=== PATIENT | male | born 1955 | race Caucasian/White ===

== ENCOUNTER 2017-06-10 09:09 | Outpatient (RCR) | payer OTHER | END 2017-06-11 | LOC: M OT 09:09 | PROVIDERS: ATTEND Family Medicine | DX: M25.60 Stiffness of unspecified joint, not elsewhere classified (principal); M62.541 Muscle wasting and atrophy, not elsewhere classified, right hand; M62.542 Muscle wasting and atrophy, not elsewhere classified, left hand ==

== ENCOUNTER 2017-06-15 09:00 | Outpatient (RCR) | payer OTHER | END 2017-07-12 | LOC: M OT 09:00 | DX: Z51.89 Encounter for other specified aftercare (principal); M25.60 Stiffness of unspecified joint, not elsewhere classified; M62.541 Muscle wasting and atrophy, not elsewhere classified, right hand; M62.542 Muscle wasting and atrophy, not elsewhere classified, left hand ==

== ENCOUNTER → 2017-08-25 | Outpatient (REF) | LOC: M SMT 14:18 | DX: M54.5 Low back pain (principal) ==

== ENCOUNTER 2018-09-02 20:20 | Emergency (ER) | payer OTHER ==
[~2018-09-02] VITALS: Ht 182.9 cm; Wt 106.8 kg
[2018-09-02 20:57] LABS: BASO # 0.1 10^3/uL (0.0-0.2); BASO % 0.6 % (0.0-1.0); EOS # 0.1 10^3/uL (0.0-0.50); EOS % 1.3 % (0.0-3.0); HEMATOCRIT 41.3 % (42.0-52.0); HEMOGLOBIN 14.1 g/dl (13.5-17.5); LYMPH # 2.5 10^3/uL (1.5-4.5); LYMPH % 23.8 % (24.0-44.0); MEAN CORPUSCULAR HEMOGLOBIN 30.5 pg (27.0-33.0); MEAN CORPUSCULAR HGB CONC 34.1 g/dl (32.0-36.5); MEAN CORPUSCULAR VOLUME 89.2 fl (80.0-96.0); MONO # 0.8 10^3/uL (0.0-0.8); MONO % 7.3 % (0.0-5.0); NEUTROPHILS # 7.1 10^3/uL (1.8-7.7); NEUTROPHILS % 66.5 % (36.0-66.0); PLATELET COUNT, AUTOMATED 261 10^3/uL (150-450); RED BLOOD COUNT 4.63 10^6/uL (4.30-6.10); WHITE BLOOD COUNT 10.6 10^3/uL (4.0-10.0)
[2018-09-02] MEDS ORDERED: ASPIRIN 81 MG CHEW TABLET PO ONE (21:00)
[2018-09-02 21:09] LABS: BLOOD UREA NITROGEN 7 MG/DL (7-18); CALCIUM LEVEL 8.7 MG/DL (8.8-10.2); CARBON DIOXIDE LEVEL 28 MEQ/L (21-32); CHLORIDE LEVEL 106 MEQ/L (98-107); CPK CREATINE PHOSPHOKINASE 183 U/L (39-308); CREATININE FOR GFR 0.99 MG/DL (0.70-1.30); GLOMERULAR FILTRATION RATE > 60.0 (>49); GLUCOSE, FASTING 103 MG/DL (70-100); MB/CK RELATIVE INDEX 1.48 (< OR =4); POTASSIUM SERUM 3.6 MEQ/L (3.5-5.1); SODIUM LEVEL 141 MEQ/L (136-145); TROPONIN I < 0.02 NG/ML (< 0.10)
[2018-09-02] MEDS: NITROGLYCERIN 0.4 MG SUBL TABLET SL PRN ×3 (21:10→21:20)
[2018-09-02 21:20] VITALS: BP 114/57
[2018-09-02] MEDS ORDERED: ISOVUE-370 76% 100ML VIAL (Q9967) As Ordered ONE (21:54)
--- NOTE | 2018-09-02 22:46 | REPVR ---
EXAM: CT Angiography Chest With Contrast EXAM DATE/TIME: 09/02/2018 9:48 PM CLINICAL HISTORY: 62 years old, male; Pain and signs and symptoms; Shortness of breath; Chest pain; Type not specified; Additional info: Chest pain, SOB TECHNIQUE: Axial computed tomographic angiography images of the chest with intravenous contrast using CT angiography protocol. All CT scans at this facility use at least one of these dose optimization techniques: automated exposure control; mA and/or kV adjustment per patient size (includes targeted exams where dose is matched to clinical indication); or iterative reconstruction. Coronal and sagittal reformatted images were created and reviewed. MIP reconstructed images were created and reviewed. CONTRAST: Contrast Material: 75 ml of ISOVUE 370; Contrast Route: IV COMPARISON: CR Chest, 2 view PA, Lat 09/02/2018 8:59 PM FINDINGS: Pulmonary arteries: There is opacification of the pulmonary arteries with no evidence of pulmonary embolus. Aorta: There is opacification of the aorta which appears intact. There is prominence of the heart. Thyroid: Normal thyroid. Lungs: Mild strandiness in the lung bases probably mild atelectasis or increased vascularity. The lungs are otherwise clear. Pleural space: Normal. No pneumothorax. No pleural effusion. Heart: No pericardial effusion. Lymph nodes: There is no evidence of lymphadenopathy. Bones/joints: No evidence of bony abnormality. Soft tissues: Unremarkable. IMPRESSION: 1. No evidence of pulmonary embolus. 2. Prominence of the heart. 3. Prominence of vascular and interstitial markings posterior aspect of the lungs. Electronically signed by: Gurvinder Alford On 09/02/2018 22:46:27 PM
[2018-09-03] MEDS ORDERED: KETOROLAC 30 MG/ML VIAL (J1885) IV ONE (00:45)
[2018-09-03 03:20] VITALS: BP 121/60
[2018-09-03 03:23] LABS: CPK CREATINE PHOSPHOKINASE 161 U/L (39-308); MB/CK RELATIVE INDEX 1.06 (< OR =4); TROPONIN I < 0.02 NG/ML (< 0.10)
[2018-09-03] MEDS ORDERED: NAPR-50 PO (03:32)
--- NOTE | 2018-09-03 08:03 | ECGEPIP ---
Stationary ECG Study [facility] - ED Test Date: 2018-09-02 Pat Name: ROLAND DUBON Department: Room: - Gender: M Property Field Inspector: : 1955 Requested By: FLORENCIA Hawkins Order Number: [id number] Reading MD: Eric Murdock Measurements Intervals [place] Rate: 80 P: 29 MT: 172 QRS: -11 QRSD: 90 T: 31 QT: 374 QTc: 434 Interpretive Statements SINUS RHYTHM INCOMPLETE RIGHT BUNDLE BRANCH BLOCK BASELINE ARTIFACT AFFECTS INTERPRETATION NO PRIORS FOR COMPARISON Electronically Signed On 09-03-2018 8:03:23 EST by Eric Murdock
--- NOTE | 2018-09-03 08:12 | ECGEPIP ---
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
--- NOTE | 2018-09-03 11:56 | REP ---
Clinical: Acute chest pain . Comparison: None . Technique: PA and lateral. Findings: The mediastinum and cardiac silhouette are normal. The lung pablo are clear and without acute consolidation, effusion, or pneumothorax. The skeletal structures are intact and normal. Impression: 1. No acute cardiopulmonary process. Electronically Signed by Meño Hickman MD 09/03/2018 11:48 A
== END 2018-09-03 03:46 | disposition home or self-care (01) ==
LOC: M ED 20:20
DX: R07.1 Chest pain on breathing (principal); I45.19 Other right bundle-branch block; Z77.098 Contact with and (suspected) exposure to other hazardous, chiefly nonmedicinal, chemicals; Z82.49 Family history of ischemic heart disease and other diseases of the circulatory system
CPT/HCPCS: 71046; 71275; 80048; 82550; 82553; 84484; 85025; 85379; 93005; 93041; 94760; 96374; 99285; J1885; Q9967

== ENCOUNTER 2019-12-13 10:28 | Inpatient (IN) | payer OTHER ==
[~2019-12-13] VITALS: Ht 182.9 cm; Wt 112.1 kg
[~2019-12-13 10:28] MED LIST: NAPR-837 PO
[2019-12-13] MEDS ORDERED: NS 1,000 ML IV SCH (12:00)
[2019-12-13 12:20] LABS: HEMATOCRIT 39.7 % (42.0-52.0); HEMOGLOBIN 13.9 g/dl (13.5-17.5); MEAN CORPUSCULAR HEMOGLOBIN 30.9 pg (27.0-33.0); MEAN CORPUSCULAR VOLUME 88.2 fl (80.0-96.0); PLATELET COUNT, AUTOMATED 243 10^3/uL (150-450); WHITE BLOOD COUNT 14.1 10^3/uL (4.0-10.0)
[2019-12-13 12:37] LABS: BLOOD UREA NITROGEN 9 MG/DL (7-18); CALCIUM LEVEL 8.6 MG/DL (8.8-10.2); CARBON DIOXIDE LEVEL 28 MEQ/L (21-32); CHLORIDE LEVEL 107 MEQ/L (98-107); GLOMERULAR FILTRATION RATE > 60.0 (>49); GLUCOSE, FASTING 105 MG/DL (70-100); POTASSIUM SERUM 4.2 MEQ/L (3.5-5.1); SODIUM LEVEL 141 MEQ/L (136-145)
--- NOTE | 2019-12-13 13:43 | REP ---
RIGHT ANKLE, FOUR VIEWS: Four views of the right ankle performed. There is a fracture of the medial malleolus which is displaced to a mild extent distally and laterally. There is mild widening of the medial aspect of the ankle mortise. There is an oblique fracture of the distal fibula, which is only minimally displaced laterally. There is associated soft tissue swelling. Electronically Signed by Munir Sanches MD 12/14/2019 12:28 P
[2019-12-13] MEDS ORDERED: MOM 30ML SUSPENSION UDC PO PRN (13:45)
--- NOTE | 2019-12-13 13:53 | REP ---
RIGHT LOWER LEG: AP and lateral views of the right lower leg performed. There is a fracture of the medial malleolus which is mildly displaced distally and laterally. There is an oblique fracture of the distal fibula with minimal lateral displacement. No other fracture or dislocation is seen. There is mild posterior calcaneal spurring. There are moderate degenerative changes of the medial knee joint with joint space narrowing and subchondral sclerosis. Electronically Signed by Munir Sanches MD 12/14/2019 12:28 P
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
--- NOTE | 2019-12-13 14:22 | REP ---
REASON: Preoperative evaluation. COMPARISON: 09/02/2018, the latest prior. FINDINGS: The technique utilized in obtaining the radiograph has magnified the cardiac silhouette and accentuated the interstitial markings. The superior mediastinal structures are midline. The cardiac silhouette is unremarkable in size, shape, and position. The diaphragmatic surfaces of the lungs are regular, and the costophrenic angles are clear. The pulmonary pablo are clear. The imaged osseous structures are intact. IMPRESSION: There is no acute cardiopulmonary disease. No significant change from the prior exam. Electronically Signed by Chon Stahl DO 12/13/2019 03:12 P
[2019-12-13 17:50] VITALS: BP 128/76
[2019-12-13] MEDS: D5W/0.9% SODIUM CHLORIDE 1,000 ML IV SCH (17:51)
--- NOTE | 2019-12-13 18:49 | ECGEPIP ---
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
[2019-12-13] MEDS ORDERED: ceFAZolin SOD 2 GM in IV 1 EA IV ONE (20:00)
[2019-12-13 20:29] VITALS: BP 126/78
[2019-12-13] MEDS: DOCUSATE SODIUM 100 MG CAP PO SCH (20:46)
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
[2019-12-13] MEDS ORDERED: propofoL 200 MG/20 ML VIAL As Ordered ONE (22:29)
[2019-12-13] MEDS ORDERED: LIDOCAINE 2% 100MG/5ML SDV (FOR ANES.) As Ordered ONE (22:29)
[2019-12-13] MEDS ORDERED: fentaNYL 100 MCG/2 ML INJECTION (J3010) As Ordered ONE (22:30)
[2019-12-13] MEDS ORDERED: MIDAZOLAM INJ 2MG/2ML VIAL (J2250 PER 1MG) As Ordered ONE (22:30)
[2019-12-13] MEDS ORDERED: METOCLOPRAMIDE INJ 10MG/2ML VIAL (J2765 PER 1) As Ordered ONE (23:15)
[2019-12-13] MEDS ORDERED: ONDANSETRON 4MG/2ML VIAL As Ordered ONE (23:16)
[2019-12-13] MEDS ORDERED: ceFAZolin 2 GM/D5W 50 ML IV BAG (J0690 PER 500MG) As Ordered ONE (23:27)
[2019-12-13] MEDS ORDERED: ceFAZolin 1GM VIAL (J0690 PER 500MG) As Ordered ONE (23:31)
[2019-12-14] VITALS (9 sets, daily range): BP systolic 94–122; BP diastolic 56–74
[2019-12-14] MEDS ORDERED: fentaNYL 100 MCG/2 ML INJECTION (J3010) As Ordered ONE ×2 (00:17→01:03)
[2019-12-14] MEDS ORDERED: ACETAMINOPHEN 1000MG 100ML IV BTL (OFIRMEV) (J0131 PER 10MG) As Ordered ONE (00:18)
[2019-12-14] MEDS ORDERED: LR 1,000 ML IV SCH (01:15)
[2019-12-14] MEDS ORDERED: ONDANSETRON 4MG/2ML VIAL IV PRN (01:15)
[2019-12-14] MEDS ORDERED: fentaNYL 100 MCG/2 ML INJECTION (J3010) IV PRN (01:15)
[2019-12-14] MEDS ORDERED: PERCOCET 5MG/325MG TAB PO PRN (01:15)
[2019-12-14] MEDS ORDERED: METOCLOPRAMIDE INJ 10MG/2ML VIAL (J2765 PER 1) IV PRN (01:15)
[2019-12-14] MEDS ORDERED: NORCO, ANEXSIA 5/325MG TABLET (HYDROcodone/ACETAMINOPHEN) PO PRN ×2 (01:15)
[2019-12-14] MEDS ORDERED: MORPHINE 4 MG/ML 1ML VIAL/SYRINGE (J2270) IV PRN (01:15)
--- NOTE | 2019-12-14 01:33 | REP ---
Clinical: Right ankle fracture. Technique: Intraoperative fluoroscopic imaging using portable C-arm technique. Findings: The patient is status post satisfactory open reduction and fixation for distal fibular fracture. Total fluoroscopic time 21 seconds. Impression: Satisfactory open fixation and reduction for distal fibular fracture. Electronically Signed by Meño Hickman MD 12/14/2019 01:25 A
[2019-12-14] MEDS: D5W/0.9% SODIUM CHLORIDE 1,000 ML IV SCH ×2 (01:47→16:28)
[2019-12-14] MEDS: ASPIRIN 81 MG CHEW TABLET PO SCH ×3 (02:51→21:48)
[2019-12-14 06:44] LABS: HEMATOCRIT 36.4 % (42.0-52.0); HEMOGLOBIN 12.4 g/dl (13.5-17.5); MEAN CORPUSCULAR HEMOGLOBIN 30.7 pg (27.0-33.0); MEAN CORPUSCULAR HGB CONC 34.1 g/dl (32.0-36.5); MEAN CORPUSCULAR VOLUME 90.1 fl (80.0-96.0); PLATELET COUNT, AUTOMATED 201 10^3/uL (150-450); RED BLOOD COUNT 4.04 10^6/uL (4.30-6.10); WHITE BLOOD COUNT 9.1 10^3/uL (4.0-10.0)
[2019-12-14 07:13] LABS: BLOOD UREA NITROGEN 8 MG/DL (7-18); CALCIUM LEVEL 7.7 MG/DL (8.8-10.2); CARBON DIOXIDE LEVEL 28 MEQ/L (21-32); CHLORIDE LEVEL 109 MEQ/L (98-107); CREATININE FOR GFR 0.81 MG/DL (0.70-1.30); GLOMERULAR FILTRATION RATE > 60.0 (>49); GLUCOSE, FASTING 109 MG/DL (70-100); SODIUM LEVEL 141 MEQ/L (136-145)
[2019-12-14] MEDS ORDERED: HYDR-3713 PO (07:25)
[2019-12-14] MEDS ORDERED: ASPI81CH33 PO (07:30)
[2019-12-14] MEDS: DOCUSATE SODIUM 100 MG CAP PO SCH ×2 (08:11→21:00)
[2019-12-14] MEDS: ceFAZolin SOD 2 GM in IV 1 EA IV SCH ×2 (08:11→16:27)
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
[2019-12-15] MEDS: ceFAZolin SOD 2 GM in IV 1 EA IV SCH (00:50)
[2019-12-15 06:00] VITALS: BP 119/68
[2019-12-15 08:16] LABS: ALBUMIN 2.9 GM/DL (3.2-5.2); ALT/SGPT 15 U/L (12-78); BLOOD UREA NITROGEN 5 MG/DL (7-18); CALCIUM LEVEL 7.8 MG/DL (8.8-10.2); CARBON DIOXIDE LEVEL 28 MEQ/L (21-32); CHLORIDE LEVEL 107 MEQ/L (98-107); CREATININE FOR GFR 0.72 MG/DL (0.70-1.30); GLOMERULAR FILTRATION RATE > 60.0 (>49); GLUCOSE, FASTING 98 MG/DL (70-100); POTASSIUM SERUM 3.6 MEQ/L (3.5-5.1); SODIUM LEVEL 141 MEQ/L (136-145)
[2019-12-15] MEDS: DOCUSATE SODIUM 100 MG CAP PO SCH ×2 (09:00→21:00)
[2019-12-15] MEDS ORDERED: PROHANCE 279.3MG/ML 5ML VIAL As Ordered ONE (09:14)
[2019-12-15] MEDS ORDERED: PROHANCE 279.3MG/ML 15ML VIAL As Ordered ONE (09:15)
[2019-12-15] MEDS: ASPIRIN 81 MG CHEW TABLET PO SCH ×2 (10:25→21:00)
--- NOTE | 2019-12-15 11:05 | REPVR ---
PROCEDURE INFORMATION: Exam: MR Cervical Spine Without and With Contrast Exam date and time: 12/15/2019 9:31 AM Age: 63 years old Clinical indication: Patient HX: Neck pain >45 years and worsening cervical spine syrinx found on MRI. TECHNIQUE: Imaging protocol: Multiplanar magnetic resonance images of the cervical spine without and with intravenous contrast. Contrast material: PROHANCE; Contrast volume: 20 ml; Contrast route: 22G; COMPARISON: CR SPINE CERVICAL AP/LAT 08/25/2017 2:30 PM FINDINGS: Examination is limited due to patient motion artifact. Vertebrae: There is severe flexion curvature of the cervical spine with the apex at C5. The appearance suggests this is chronic and comparison to prior studies is recommended. Spinal cord: There is moderate thinning/atrophy of the cervical cord at the C5 level. High signal within the cervical cord extends from C5 through C7 consistent with known syrinx. There is cord expansion at the C7 level. C2-C3: No significant disc disease. No significant spinal stenosis. C3-C4: There is a moderate disc/osteophyte complex that flattens the ventral thecal sac. C4-C5: There is a moderate disc/osteophyte complex that flattens the ventral thecal sac. There is mild bilateral neuroforaminal narrowing. There is mild spinal canal stenosis. C5-C6: There is a moderate disc/osteophyte complex that flattens the ventral thecal sac. There is mild spinal canal stenosis. C6-C7: There is minimal retrolisthesis at this level. There is disc space narrowing and desiccation. There are moderate degenerative end plate changes at this level. There is mild bilateral neuroforaminal narrowing. There is mild spinal canal stenosis. C7-T1: No significant disc disease. No significant spinal stenosis. There is no abnormal enhancement. IMPRESSION: 1. Examination is limited due to patient motion artifact. 2. There is severe flexion curvature of the cervical spine with the apex at C5. The appearance suggests this is chronic and comparison to prior studies is recommended. 3. Advanced degenerative changes with variable degrees of spinal canal and neuroforaminal narrowing. Please see details above. Air 4. There is moderate thinning/atrophy of the cervical cord at the C5 level. High signal within the cervical cord extends from C5 through C7 consistent with known syrinx. There is cord expansion at the C7 level. Direct comparison to prior studies is recommended. Electronically signed by: Bull Hurt On 12/15/2019 11:05:00 AM
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
[2019-12-15 14:00] VITALS: BP 120/70
[2019-12-15 22:00] VITALS: BP 133/90
[2019-12-16 06:00] VITALS: BP 131/91
[2019-12-16] MEDS: DOCUSATE SODIUM 100 MG CAP PO SCH ×2 (09:00→20:49)
[2019-12-16] MEDS: ASPIRIN 81 MG CHEW TABLET PO SCH ×2 (09:15→20:49)
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
[2019-12-16 15:45] VITALS: BP 121/69
[2019-12-16 22:00] VITALS: BP 146/80
[2019-12-17 06:00] VITALS: BP 117/77
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
[2019-12-17] MEDS: DOCUSATE SODIUM 100 MG CAP PO SCH ×2 (08:20→20:05)
[2019-12-17] MEDS: ASPIRIN 81 MG CHEW TABLET PO SCH ×2 (08:46→20:06)
[2019-12-17 14:00] VITALS: BP 143/68
[2019-12-17] MEDS ORDERED: MIRALAX *UNIT DOSE* 17GM PACKET PO PRN (17:15)
[2019-12-17 22:00] VITALS: BP 132/81
[2019-12-18 06:00] VITALS: BP 130/80
[2019-12-18 06:59] LABS: BASO # 0.1 10^3/uL (0.0-0.2); BASO % 1.1 % (0.0-1.0); EOS # 0.3 10^3/uL (0.0-0.5); EOS % 3.1 % (0.0-3.0); HEMOGLOBIN 13.1 g/dl (13.5-17.5); LYMPH # 2.3 10^3/uL (1.5-5.0); LYMPH % 28.1 % (24.0-44.0); MEAN CORPUSCULAR HGB CONC 35.4 g/dl (32.0-36.5); MEAN CORPUSCULAR VOLUME 87.7 fl (80.0-96.0); MONO # 0.7 10^3/uL (0.0-0.8); MONO % 8.4 % (0.0-5.0); NEUTROPHILS # 4.8 10^3/uL (1.5-8.5); NEUTROPHILS % 58.8 % (36.0-66.0); PLATELET COUNT, AUTOMATED 270 10^3/uL (150-450); RED BLOOD COUNT 4.22 10^6/uL (4.30-6.10); WHITE BLOOD COUNT 8.1 10^3/uL (4.0-10.0)
[2019-12-18 07:26] LABS: BLOOD UREA NITROGEN 8 MG/DL (7-18); CALCIUM LEVEL 8.4 MG/DL (8.8-10.2); CARBON DIOXIDE LEVEL 26 MEQ/L (21-32); CHLORIDE LEVEL 106 MEQ/L (98-107); CREATININE FOR GFR 0.71 MG/DL (0.70-1.30); GLOMERULAR FILTRATION RATE > 60.0 (>49); GLUCOSE, FASTING 87 MG/DL (70-100); POTASSIUM SERUM 3.6 MEQ/L (3.5-5.1); SODIUM LEVEL 138 MEQ/L (136-145)
[2019-12-18] MEDS: ASPIRIN 81 MG CHEW TABLET PO SCH ×2 (08:17→20:09)
[2019-12-18] MEDS: DOCUSATE SODIUM 100 MG CAP PO SCH ×2 (08:17→20:09)
[2019-12-18] MEDS ORDERED: ENOXAPARIN 40MG/0.4ML SYRINGE (J1650 PER 10MG) SC SCH (09:00)
[2019-12-18 14:00] VITALS: BP 153/88
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
[2019-12-18] MEDS ORDERED: ANUSOL HC CREAM 30GM TOP PRN (16:00)
[2019-12-18] MEDS: CETAPHIL CLEANSER TOP SCH (20:09)
[2019-12-18 22:00] VITALS: BP 123/75
[2019-12-19 06:00] VITALS: BP 124/75
[2019-12-19] MEDS: CETAPHIL CLEANSER TOP SCH ×2 (08:33→21:01)
[2019-12-19] MEDS: ASPIRIN 81 MG CHEW TABLET PO SCH ×2 (08:33→21:02)
[2019-12-19] MEDS: DOCUSATE SODIUM 100 MG CAP PO SCH ×2 (08:34→21:00)
--- NOTE | 2019-12-19 13:59 | RO ---
DATE OF PROCEDURE: 12/14/2019 PREPROCEDURE DIAGNOSIS: Bimalleolar right ankle fracture. POSTPROCEDURE DIAGNOSIS: Bimalleolar right ankle fracture. PROCEDURE: Open reduction internal fixation of right ankle fracture. SURGEON: Guzman Park MD FIRE CONTROL TECHNICIAN B: None. ANESTHESIA: General laryngeal mask anesthetic. COMPLICATIONS: None. ESTIMATED BLOOD LOSS: Less than 20 mL. TOURNIQUET TIME: 32 minutes. ANTIBIOTICS: 2 grams Kefzol. DESCRIPTION OF PROCEDURE: Antibiotics were given intravenously preoperatively, and a successful general laryngeal mask anesthetic was established. Tourniquet placed at the right upper thigh and not inflated. The right lower extremity was carefully prepped and draped in the usual sterile fashion, leg elevated, and then after appropriate time-out, the tourniquet was inflated at 250 mmHg. We first addressed the lateral portion of the ankle fracture. A lateral and longitudinal incision was made, exposing the underlying distal fibular fracture. Using a skin knife, then a secondary knife was used to help expose the fracture site and use a small torres elevator to elevate the periosteum away to allow us to irrigate out the fracture site. It was an oblique simple fracture pattern, which was irrigated copiously, and then an open anatomic reduction performed and held with alligator and point of reduction forceps. Fluoroscopic imaging at this point confirmed that on the mortise view, we had reduction of the mortise, and a very small almost an evulsion injury of the medial malleolus reduced nicely. As suggested preoperatively by my foot and ankle colleague, if the mortise reduced, likely it would not require fixation of that small medial piece and avoid opening the medial side of the ankle. Once the fracture was well reduced, an interfragmentary compression screw was placed from front to back through a small accessory stab incision anteriorly. Using the 3.5 drill and exchanged to the top hat drill guide and then the 2.5 drill and then I placed a 20-mm fully-threaded cortical screw, providing excellent firm fixation. I then contoured a 7-hole plate; and under fluoroscopic imaging, I confirmed I had good position of the plate. Then, I filled the distal-most hole with an 18-mm cancellous fully-threaded screw, and then the second-most proximal screw hole was filled with a 3.5 cortical screw after measuring appropriately. Fluoroscopic imaging confirmed we continued to have good reduction of the fracture and good placement of the plate and those two screws; and thus, the remaining screws were filled except for the one in the central portion of the plate overlying the interfragmentary compression screw. The distal three holes were filled with cancellous screws, the proximal three with cortical screws. Excellent firm fixation of all the screws were noted. Fluoroscopic imaging confirmed we had good reduction of the mortise, and on the mortise view, as well as a good AP reduction and lateral view reduction of the fracture site, and the hardware was in good position. Again, a very small medial malleolar piece seemed to reduce nicely, and it was so small, I did not feel it was worth opening the medial side of the ankle, causing further trauma and risk of infection in this already-compromised patient with skin excoriations and rashes. It is noteworthy that Ioban was used throughout the procedure to help minimize any exposure of the skin to the surgical wound. At this point, I released the tourniquet, copiously irrigated out the fracture site, then closed the deep subdermal tissues with several interrupted 2-0 polydioxanone suture (PDS) sutures. The skin was closed with ambrocio. The small stab incision was closed with a staple. The wounds were covered with an Adaptic and then a dry sterile bulky ortho dressing, and then a very well-padded loose-fitting plaster cast was applied. He was then awakened from general laryngeal mask anesthetic after having tolerated the procedure well and transferred to the recovery room in stable condition. There were no intraoperative complications.
[2019-12-19 14:00] VITALS: BP 124/73
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
[2019-12-19] MEDS: ANUSOL HC CREAM 30GM TOP SCH ×2 (15:34→21:01)
--- NOTE | 2019-12-19 17:24 | CR ---
DATE OF CONSULTATION: 12/18/2019 The patient was seen at the request of my partner, Dr. Guzman Park, who had treated him for an ankle fracture, to evaluate cervical myelopathy. HISTORY: His previous medical records were reviewed. The patient indicates that he has been seen in [place] by a neurosurgeon there in the past for cervical myelopathy, cervical kyphosis and syrinx and considered surgery not an option, apparently surgery was offered, the patient felt that the risks were not something he was comfortable with and elected for nonoperative care. I reviewed the imaging. The patient does have significant cervical kyphosis. He has an area of myelomalacia in the subaxial cervical spine. There is a syrinx extending from C6 down. For further details, refer to MRI and other imaging studies. Primary today's visit was a counseling visit. I spoke to the patient again about his neurologic condition, which has deteriorated over time, and he acknowledges this. I spoke to the patient about potential surgical interventions, which in my hands would likely entail anterior and posterior cervical surgery, such as an anterior partial corpectomy, strut grafting, instrumentation with posterior instrumentation because of the significant kyphosis. This is unappealing to the gentleman. He understands that the surgery is to prevent his condition from getting worse, that the surgery is associated with a significant recovery period, that while he has some possibility of noting some improvement, improvement at best would be incomplete. He feels that his recovery would be too protracted. He feels strongly he would not consent to an operative intervention, declining surgery. I am happy to see this patient at any point in the future to revisit his treatment options. The patient was comfortable with our plan.
[2019-12-19 22:00] VITALS: BP 124/71
[2019-12-20 06:00] VITALS: BP 121/70
[2019-12-20 07:11] LABS: BASO # 0.1 10^3/uL (0.0-0.2); BASO % 0.9 % (0.0-1.0); EOS # 0.2 10^3/uL (0.0-0.5); EOS % 2.8 % (0.0-3.0); HEMATOCRIT 36.2 % (42.0-52.0); HEMOGLOBIN 12.5 g/dl (13.5-17.5); LYMPH # 2.2 10^3/uL (1.5-5.0); LYMPH % 27.8 % (24.0-44.0); MEAN CORPUSCULAR HEMOGLOBIN 30.9 pg (27.0-33.0); MEAN CORPUSCULAR HGB CONC 34.5 g/dl (32.0-36.5); MEAN CORPUSCULAR VOLUME 89.4 fl (80.0-96.0); MONO # 0.7 10^3/uL (0.0-0.8); MONO % 9.2 % (0.0-5.0); NEUTROPHILS # 4.6 10^3/uL (1.5-8.5); PLATELET COUNT, AUTOMATED 282 10^3/uL (150-450); RED BLOOD COUNT 4.05 10^6/uL (4.30-6.10); WHITE BLOOD COUNT 7.7 10^3/uL (4.0-10.0)
[2019-12-20 07:36] LABS: BLOOD UREA NITROGEN 10 MG/DL (7-18); CALCIUM LEVEL 8.2 MG/DL (8.8-10.2); CARBON DIOXIDE LEVEL 28 MEQ/L (21-32); CHLORIDE LEVEL 107 MEQ/L (98-107); CREATININE FOR GFR 0.66 MG/DL (0.70-1.30); GLOMERULAR FILTRATION RATE > 60.0 (>49); GLUCOSE, FASTING 84 MG/DL (70-100); POTASSIUM SERUM 3.8 MEQ/L (3.5-5.1); SODIUM LEVEL 140 MEQ/L (136-145)
[2019-12-20] MEDS: CETAPHIL CLEANSER TOP SCH ×2 (08:53→21:00)
[2019-12-20] MEDS: ANUSOL HC CREAM 30GM TOP SCH ×2 (08:53→21:04)
[2019-12-20] MEDS: DOCUSATE SODIUM 100 MG CAP PO SCH ×2 (08:53→21:00)
[2019-12-20] MEDS: ASPIRIN 81 MG CHEW TABLET PO SCH ×2 (08:53→21:04)
[2019-12-20 14:49] VITALS: BP 128/77
--- NOTE | 2019-12-20 17:34 | IPN ---
DATE: 12/20/2019 SUBJECTIVE: Patient denies any pain, 3/10 while he has his leg and ankle elevated and not moving. When he does stand up, per nursing, patient has not requested any pain medications and would not take any morphine or hydrocodone orally when he moves. Patient says that the pain gets up to about a 5/10 on a pain scale, but says he does not want to take any pain medications. PHYSICAL EXAM: Vital Signs: Temperature 97.9, pulse 60, respiratory rate 16, blood pressure 121/70, 94% on room air. Generally, patient is awake, alert, oriented to person, place and time. He has no respiratory distress, able to speak in full sentences. Lungs are clear to auscultation. No wheezing, rales or rhonchi. Heart: S1, S2, sinus rhythm. Abdomen is soft, nontender, nondistended. Obese abdomen. Extremities: No cyanosis or clubbing. Ankle is elevated. ASSESSMENT AND PLAN: This is a 64-year-old with bimalleolar ankle fracture, status post open reduction internal fixation of the right ankle fracture on 12/13/[address] Guzman Park, who lives alone, unable to complete activities of daily living (ADLs), evaluated by Dr. Tin Luque who recommended surgical intervention, but patient feels that "his recovery would be too protracted" and would not consent to operative intervention, declining surgery. CURRENT ISSUES: 1. Bimalleolar right ankle fracture, status post ORIF, awaiting acute rehabilitation unit (ARU) acceptance. Patient and family services (PFS) consulted. Pain meds, bowel regimen and physical therapy. 2. Cervical myelopathy. Refusing surgery. Evaluated by Dr. Tin Luque. Patient continues to deteriorate neurologically, and even after discussion of risks and benefits, patient is declining surgery at this time. 3. Facial dermatitis, on Cetaphil. Dermatology followup as outpatient. 4. Chronic constipation, on Senna and MiraLAX. 5. Obesity, body mass index (BMI) of 33, complicating care. 6. Disposition: Awaiting PFS in terms of discharge options. Medically stable for hospital discharge either to ARU or custodial. SONA
[2019-12-20 22:00] VITALS: BP 132/72
[2019-12-21 06:00] VITALS: BP 130/72
[2019-12-21] MEDS: DOCUSATE SODIUM 100 MG CAP PO SCH (09:00)
[2019-12-21] MEDS: ASPIRIN 81 MG CHEW TABLET PO SCH (09:10)
[2019-12-21] MEDS: CETAPHIL CLEANSER TOP SCH (09:11)
[2019-12-21] MEDS: ANUSOL HC CREAM 30GM TOP SCH (09:12)
== END 2019-12-21 14:05 | DRG 493 ==
LOC: EDBD 10:28 → M ED 10:28 → M ED INP 13:35 → ENRESERV 13:44 → M MS5PR 17:42
PROVIDERS: ADMIT Internal Medicine Nephrology; ATTEND General Practice
PROC: 0QSJ04Z Reposition Right Fibula with Internal Fixation Device, Open Approach (ICD-10-PCS; principal; 2019-12-14)
DX: S82.841A Displaced bimalleolar fracture of right lower leg, initial encounter for closed fracture (principal); G95.0 Syringomyelia and syringobulbia; K59.09 Other constipation; W18.30XA Fall on same level, unspecified, initial encounter; X58.XXXA Exposure to other specified factors, initial encounter; Y92.9 Unspecified place or not applicable; S14.105S Unspecified injury at C5 level of cervical spinal cord, sequela; M62.522 Muscle wasting and atrophy, not elsewhere classified, left upper arm; M62.421 Contracture of muscle, right upper arm; M40.12 Other secondary kyphosis, cervical region; M62.422 Contracture of muscle, left upper arm; R53.81 Other malaise; L23.9 Allergic contact dermatitis, unspecified cause; M62.521 Muscle wasting and atrophy, not elsewhere classified, right upper arm; E66.9 Obesity, unspecified; Z68.33 Body mass index [BMI] 33.0-33.9, adult; Z90.49 Acquired absence of other specified parts of digestive tract; Z74.09 Other reduced mobility; Z87.442 Personal history of urinary calculi; Y99.8 Other external cause status; Z11.59 Encounter for screening for other viral diseases

== ENCOUNTER → 2021-02-08 | Outpatient (CLI) | payer MEDICARE, OTHER ==
[~2021-02-08] MED LIST changes: +ASPI81CH33 PO; +HYDR-3713 PO
--- NOTE | 2021-02-08 15:27 | REPVR ---
PROCEDURE INFORMATION: Exam: MR Lumbar Spine Without Contrast Exam date and time: 02/08/2021 9:00 AM Age: 65 years old Clinical indication: Low back pain; Additional info: Disc like symptoms TECHNIQUE: Imaging protocol: Multiplanar magnetic resonance images of the lumbar spine without intravenous contrast. COMPARISON: No relevant prior studies available. FINDINGS: Vertebrae: Vertebral body heights are intact. Alignment is maintained. No pars defect is identified. Spinal cord: The conus is unremarkable in appearance, with its tip at the T12 level. Multilevel findings: There are varying degrees of disc desiccation indicating intervertebral disc degeneration. There are also small Schmorl's nodes at some levels. L1-L2: No significant disc displacement. L2-L3: Minimal bulge without significant neural foraminal narrowing or spinal stenosis. L3-L4: Small bulge combining with facet arthrosis to lead to moderate right and mild to moderate left neural foraminal narrowing with mild right lateral recess narrowing, without significant central canal stenosis. L4-L5: Disc osteophyte complex combining with facet arthrosis and ligamentum flavum hypertrophy to lead to moderate to severe bilateral neural foraminal narrowing with moderate right and mild left lateral recess narrowing and borderline central canal stenosis. L5-S1: Disc osteophyte complex combining with facet arthrosis and ligamentum flavum hypertrophy to lead to moderate to severe bilateral neural foraminal narrowing with mild narrowing of the bilateral lateral recesses and mild to moderate central canal stenosis. There is small fluid in the facet joints. An 11 x 9 x 9 mm fluid intensity signal lesion in the right aspect of the thecal sac just superior to the level of the disc is adjacent to the superior margin of the right facet joint and could represent a synovial cyst, and contributes to right lateral recess narrowing above the level of the disc. There is also a 4 x 4 mm synovial cyst extending posteriorly from the inferior aspect of the right L5 facet joint. Soft tissues: Unremarkable. IMPRESSION: 1. Multilevel disc desiccation indicating intervertebral disk degeneration with disc displacements as described. 2. Small fluid intensity signal lesion in the right aspect of the thecal sac at the L5 level, could represent a synovial cyst extending from the right L5-S1 facet joint. This could be confirmed with gadolinium as clinically appropriate. COMMENTS: If surgery is considered, recommend level confirmation. Electronically signed by: Steven De La Cruz On 02/08/2021 15:27:22 PM
== END ==
LOC: M PLARAD 08:59
PROVIDERS: ATTEND Chiropractor
DX: R93.7 Abnormal findings on diagnostic imaging of other parts of musculoskeletal system (principal); M54.31 Sciatica, right side; M54.32 Sciatica, left side; M99.03 Segmental and somatic dysfunction of lumbar region

== ENCOUNTER → 2022-02-21 | Outpatient (CLI) | payer MEDICARE, OTHER | LOC: M RAD 08:46 | PROVIDERS: ATTEND Neurological Surgery | DX: G95.9 Disease of spinal cord, unspecified (principal) ==

== ENCOUNTER → 2022-05-07 | Outpatient (CLI) | payer MEDICARE, OTHER ==
[~2022-05-07] MED LIST changes: +GASTROGRAFIN SOLUTION 30ML (Q9963) As Ordered ONE; +ISOVUE-370 76% 100ML VIAL As Ordered ONE
== END ==
LOC: M RAD 11:49
PROVIDERS: ATTEND Physician Assistant Medical
DX: K59.39 Other megacolon (principal)
CPT/HCPCS: 74177; Q9963; Q9967

== ENCOUNTER 2022-10-20 11:06 | Day surgery (SDC) | payer MEDICARE, OTHER ==
[~2022-10-20] VITALS: Ht 182.9 cm; Wt 115.6 kg
[~2022-10-20 11:06] MED LIST changes: -GASTROGRAFIN SOLUTION 30ML (Q9963) As Ordered ONE; -ISOVUE-370 76% 100ML VIAL As Ordered ONE; +NS 1,000 ML IV ONE
[2022-10-20] MEDS ORDERED: propofoL 200 MG/20 ML VIAL As Ordered ONE (13:13)
[2022-10-20] MEDS ORDERED: LIDOCAINE 2% 100MG/5ML SDV (FOR ANES.) As Ordered ONE (13:13)
[2022-10-20] MEDS ORDERED: fentaNYL 100 MCG/2 ML INJECTION As Ordered ONE (13:39)
[2022-10-20] MEDS ORDERED: CETACAINE SPRAY 5GM As Ordered ONE (13:39)
[2022-10-20 14:23] VITALS: BP 161/89
== END 2022-10-20 18:55 | disposition home or self-care (01) ==
LOC: M OPP 11:06
PROVIDERS: ATTEND Internal Medicine Gastroenterology
DX: K29.70 Gastritis, unspecified, without bleeding (principal); Z80.0 Family history of malignant neoplasm of digestive organs; Z87.19 Personal history of other diseases of the digestive system; F17.290 Nicotine dependence, other tobacco product, uncomplicated
CPT/HCPCS: 43239; 88305; J3010